=== PATIENT | male | born 1945 | race Caucasian/White ===

== ENCOUNTER 2019-05-12 08:20 | Emergency (ER) | payer OTHER, MEDICARE ==
[~2019-05-12] VITALS: Ht 180.3 cm; Wt 72.6 kg
[2019-05-12] MEDS ORDERED: ATOR10 (09:40)
[2019-05-12] MEDS ORDERED: Bactrim 400-801 EACH PO (09:40)
[2019-05-12] MEDS ORDERED: OMEPRAZOLE20 MG PO (09:40)
[2019-05-12] MEDS ORDERED: Aspirin EC81 MG PO (09:40)
[2019-05-12 09:59] LABS: BASOPHILS ABSOLUTE AUTO 0.06 K/mm3 (0.00-0.23); BASOPHILS PERCENT AUTO 1 % (0-2); EOSINOPHILS ABSOLUTE AUTO 0.19 K/mm3 (0.00-0.68); EOSINOPHILS PERCENT AUTO 3 % (0-6); Hematocrit 48.8 % (37.0-53.0); Hemoglobin 16.5 g/dL (13.5-17.5); IMMATURE GRAN ABSOLUTE AUTO 0.03 K/mm3 (0.00-0.10); IMMATURE GRAN PERCENT AUTO 0 % (0-1); LYMPHOCYTES ABSOLUTE AUTO 1.11 K/mm3 (0.84-5.20); LYMPHOCYTES PERCENT AUTO 15 % (21-46); MONOCYTES ABSOLUTE AUTO 0.68 K/mm3 (0.16-1.47); MONOCYTES PERCENT AUTO 9 % (4-13); Mean Corpuscular HGB 31.4 pg (26.0-34.0); Mean Corpuscular HGB Conc 33.8 g/dL (31.5-36.5); Mean Corpuscular Volume 93 fL (80-100); Mean Platelet Volume 9.7 fL (9.1-12.4); NEUTROPHILS ABSOLUTE AUTO 5.52 K/mm3 (1.96-9.15); NEUTROPHILS PERCENT AUTO 73 % (41-73); Platelet Count 187 K/mm3 (150-400); RDW Coefficient Variation 13.2 % (11.7-14.2); RDW Standard Deviation 45.4 fL (35.1-46.3); Red Blood Cell Count 5.25 M/mm3 (4.30-5.90); White Blood Cell Count 7.59 K/mm3 (4.00-11.30)
[2019-05-12 10:21] LABS: Alanine Aminotransfer (ALT/SGP 34 U/L (12-78); Albumin/Globulin Ratio 1.1 (0.8-1.8); Alk Phos 63 U/L (50-136); Anion Gap 6 mmol/L (6-16); Aspartate Aminotrans (AST/SGOT 28 U/L (12-37); Bilirubin, Total 0.6 mg/dL (0.1-1.0); Blood Urea Nitrogen 19 mg/dL (8-24); Bun/Creatinine Ratio 24.4 (12.0-20.0); CO2, Blood 28 mmol/L (21-32); Chloride, Blood 106 mmol/L (98-108); Creatinine, Blood 0.78 mg/dL (0.60-1.20); Globulin, Blood 3.6 g/dL (2.2-4.0); Glomerular Filtration Rate >60 (60-); Glucose, Blood 108 mg/dL (70-99); Potassium, Blood 4.6 mmol/L (3.5-5.5); Sodium, Blood 140 mmol/L (136-145); Total Protein, Blood 7.6 g/dL (6.4-8.2)
== END 2019-05-12 11:14 | disposition home or self-care (01) ==
LOC: ER 08:20
PROVIDERS: Physician Assistant
DX: R42 Dizziness and giddiness (principal); Z79.899 Other long term (current) drug therapy; Z79.82 Long term (current) use of aspirin; Z87.891 Personal history of nicotine dependence
CPT/HCPCS: 36415; 70450; 80053; 85025; 93005; 93010; 99284-25

== ENCOUNTER → 2019-12-04 | Outpatient (CLI) | payer MEDICARE ==
[~2019-12-04] MED LIST: ATOR10; Aspirin EC81 MG PO; Bactrim 400-801 EACH PO; OMEPRAZOLE20 MG PO
== END | disposition home or self-care (01) ==
LOC: PLD 10:55 → LAB SHORT 10:55
DX: C44.319 Basal cell carcinoma of skin of other parts of face (principal)
CPT/HCPCS: 88305

== ENCOUNTER → 2019-12-31 | Outpatient (CLI) | payer MEDICARE | END | disposition home or self-care (01) | LOC: LAB SHORT 13:28 → PLD 13:28 | DX: C44.319 Basal cell carcinoma of skin of other parts of face (principal) | CPT/HCPCS: 88305 ==

== ENCOUNTER 2021-02-07 11:36 | Emergency (ER) | payer OTHER, MEDICARE ==
[~2021-02-07] VITALS: Ht 180.3 cm; Wt 72.6 kg
== END 2021-02-07 13:47 | disposition home or self-care (01) ==
LOC: ER 11:36
DX: M16.12 Unilateral primary osteoarthritis, left hip (principal); Z79.82 Long term (current) use of aspirin; Z79.899 Other long term (current) drug therapy; Z87.891 Personal history of nicotine dependence
CPT/HCPCS: 73502; 99283-25

== ENCOUNTER 2024-03-25 11:40 | Day surgery (SDC) | payer OTHER ==
[~2024-03-25] VITALS: Ht 177.8 cm; Wt 70.4 kg
[~2024-03-25 11:40] MED LIST changes: +Balanced Salt Epinephrine Irrigation Solution 500 mL IR SCH; +Carvedilol12.5 MG PO; +EZET10 PO; +Lidocaine HCl/Pf 1% 5 ML VIAL XX SCH; +Moxifloxacin HCL 0.5 MG/0.1 ML 0.4MLSYR RIGHTEYE SCH; +NS 500 ML IV ONE; +PHENYLEPHRINE\\TROPICAMIDE\\TETRACAINE OPHTHALMIC DILATING SOLN RIGHTEYE PRN; +Povidone-Iodine 450 DROP/30 ML Solution RIGHTEYE SCH
[2024-03-25] MEDS ORDERED: NS 500 ML IV ONE (12:04)
[2024-03-25] MEDS ORDERED: MULTIPLE VITAM1 EACH (12:08)
[2024-03-25] MEDS ORDERED: AMLO10 PO (12:09)
[2024-03-25] MEDS ORDERED: LUPRON DEPOT7.5 M1 IM (12:10)
[2024-03-25] MEDS ORDERED: FentaNYL Citrate 50 MCG/ML 2 ML Injection ONE (12:11)
[2024-03-25] MEDS ORDERED: Midazolam HCl 1MG / ML 2ML Vial ONE (12:11)
--- NOTE | 2024-03-25 12:22 | NUR ---
03/25/24 1222 Nora Skinner TETRACAINE PLACED BY [facility]. [facility]ER[facility] IN AT [id number].
[2024-03-25 13:39] VITALS: BP 130/77
== END 2024-03-25 13:50 | disposition home or self-care (01) ==
LOC: ORSCSDS 11:40
PROVIDERS: Student in an Organized Health Care Education/Training Program
PROC: 08RJ3JZ Replacement of Right Lens with Synthetic Substitute, Percutaneous Approach (ICD-10-PCS; principal; 2024-03-25 13:00)
DX: H25.813 Combined forms of age-related cataract, bilateral (principal); H21.81 Floppy iris syndrome; K21.9 Gastro-esophageal reflux disease without esophagitis; E78.5 Hyperlipidemia, unspecified; I35.0 Nonrheumatic aortic (valve) stenosis; Z79.82 Long term (current) use of aspirin; Z79.899 Other long term (current) drug therapy; Z87.891 Personal history of nicotine dependence
CPT/HCPCS: J2250; J3010; J7040; V2632

== ENCOUNTER 2024-04-01 11:36 | Day surgery (SDC) | payer OTHER ==
[~2024-04-01] VITALS: Ht 177.8 cm; Wt 70.0 kg
[~2024-04-01 11:36] MED LIST changes: +AMLO10 PO; +LUPRON DEPOT7.5 M1 IM; +MULTIPLE VITAM1 EACH; +Moxifloxacin HCL 0.5 MG/0.1 ML 0.4MLSYR LEFTEYE SCH; -Moxifloxacin HCL 0.5 MG/0.1 ML 0.4MLSYR RIGHTEYE SCH; +PHENYLEPHRINE\\TROPICAMIDE\\TETRACAINE OPHTHALMIC DILATING SOLN LEFTEYE PRN; -PHENYLEPHRINE\\TROPICAMIDE\\TETRACAINE OPHTHALMIC DILATING SOLN RIGHTEYE PRN; +Povidone-Iodine 450 DROP/30 ML Solution LEFTEYE SCH; -Povidone-Iodine 450 DROP/30 ML Solution RIGHTEYE SCH
[2024-04-01] MEDS ORDERED: Midazolam HCl 1MG / ML 2ML Vial ONE (11:59)
[2024-04-01] MEDS ORDERED: FentaNYL Citrate 50 MCG/ML 2 ML Injection ONE (11:59)
[2024-04-01] MEDS ORDERED: Lactated Ringer's 1,000 ML IV ONE (12:19)
--- NOTE | 2024-04-01 13:01 | NUR ---
04/01/24 1301 Rae Ledesma HEARING AID UNDER THE BED
[2024-04-01 13:24] VITALS: BP 121/71
== END 2024-04-01 13:36 | disposition home or self-care (01) ==
LOC: ORSCSDS 11:36
PROVIDERS: Student in an Organized Health Care Education/Training Program
PROC: 08RK3JZ Replacement of Left Lens with Synthetic Substitute, Percutaneous Approach (ICD-10-PCS; principal; 2024-04-01 13:00)
DX: H25.812 Combined forms of age-related cataract, left eye (principal); Z96.1 Presence of intraocular lens; I10 Essential (primary) hypertension; K21.9 Gastro-esophageal reflux disease without esophagitis; E78.5 Hyperlipidemia, unspecified; Z87.891 Personal history of nicotine dependence; Z79.82 Long term (current) use of aspirin; Z79.899 Other long term (current) drug therapy
CPT/HCPCS: J2250; J3010; J7040; J7120; V2632

== ENCOUNTER → 2024-04-08 | Outpatient (CLI) | payer OTHER ==
[~2024-04-08] MED LIST changes: -Balanced Salt Epinephrine Irrigation Solution 500 mL IR SCH; -Lidocaine HCl/Pf 1% 5 ML VIAL XX SCH; -Moxifloxacin HCL 0.5 MG/0.1 ML 0.4MLSYR LEFTEYE SCH; -NS 500 ML IV ONE; -PHENYLEPHRINE\\TROPICAMIDE\\TETRACAINE OPHTHALMIC DILATING SOLN LEFTEYE PRN; -Povidone-Iodine 450 DROP/30 ML Solution LEFTEYE SCH
== END | disposition home or self-care (01) ==
LOC: LAB 14:30 → LAB SHORT 14:30 → EDSTATUS 04-08 14:05 → LAB FUT 04-08 14:05
DX: N21.0 Calculus in bladder (principal)
CPT/HCPCS: 87077; 87086; 87147; 87186

== ENCOUNTER → 2024-06-05 | Outpatient (CLI) | payer OTHER ==
[2024-06-05 13:57] LABS: Appearance, Urine Hazy (Clear); Bilirubin, Urine Neg (Neg); Blood, Urine 2+ (Neg); Color, Urine Yellow (P-Yellow); Glucose Qualitative, Urine Neg (Neg); Ketones, Urine Neg (Neg); Leukocyte Esterase, Urine 3+ (Neg); Nitrite, Urine Neg (Neg); Protein, Urine 2+ (Neg); Urobilinogen, Urine NORM (Normal)
[2024-06-05 14:17] LABS: Bacteria Many /hpf; Renal Epithelial Rare /hpf (0-Rare); Squamous Epithelial Cells Few /hpf (Few); White Blood Cells, Urine 50-100 /hpf (0-5)
== END ==
LOC: LAB SHORT 13:38 → LAB 13:38
PROVIDERS: Surgery
DX: C61 Malignant neoplasm of prostate (principal); R39.15 Urgency of urination
CPT/HCPCS: 81001